=== PATIENT | female | born 1950 | race Caucasian/White ===

== ENCOUNTER 2016-10-01 07:03 | Day surgery (SDC) | payer MEDICARE, MEDICAID ==
[~2016-10-01 07:03] MED LIST: ACETAMINOPHEN500 M4 PO; ACIDOPHILUS1 CAP; ACIDOPHILUS1 EAC3 PO; AFRIN15 M2; AYR SALINE NASA; CALCIUM 600 WI1 EACH; CALTRATE 600 +1 EAC3 PO; CARDURA4 MG; CLONIDINE HCL0.1 M2 PO; COMBIVENT INH14.7 GM; COMBIVENT RESPIM4 G1 INH; CPAP; FLONASE ALLERG9.9 ML; GAVISCON E1 TAB.CHEW; IBUPROFEN800 MG; KEPPRA1000 MG; KEPPRA500 M3 PO; KLOR-CON M2020 MEQ; LOPERAMIDE; MAGNESIUM200 M1 PO; METOPROLOL SUCC25 M1 PO; MULTIVITAMIN1 TAB; MULTIVITAMINS1 EAC6 PO; NASACORT10.8 M1; NORVASC10 MG; NORVASC5 M2 PO; POTASSIUM CHLO20 ME3 PO; PREDNISONE1 M1 PO; PREDNISONE1 MG; PRILOSEC OTC20 M1 PO; PROTONIX40 MG; SALINE NASAL SP30 M1; SEROQUEL25 M2 PO; SEROQUEL25 MG; TOPROL XL100 MG; TOPROL XL25 M1 PO; TOPROL XL50 MG; TYLENOL EXTRA500 MG; VITAMIN D32000 UNI2 PO; WELCHOL625 M1 PO; ZITHROMAX500 M2 PO; ZOCOR10 MG; ZYRTEC1010 PO
[2016-10-01 08:31] LABS: BASO % 0.2 % (0-2); EOS % 2.3 % (0-7); EOSINOPHIL ABSOLUTE COUNT 0.1 tho/cmm (0.0-0.7); HCT-HEMATOCRIT 38.6 % (34.0-49.0); HGB-HEMOGLOBIN 13.5 gm/dl (12.0-15.5); LYMPH % 33.8 % (20-45); LYMPH ABSOLUTE COUNT 1.6 tho/cmm (0.8-4.5); MCV (MEAN CELL VOLUME) 88.7 fl (82.0-96.0); MEAN PLATELET VOLUME 8.6 cmc (9.4-12.4); MONO % 14.2 % (0-12); MONOCYTE ABSOLUTE COUNT 0.7 tho/cmm (0.0-1.2); NEUTROPHIL ABSOLUTE COUNT 2.4 tho/cmm (1.6-8.0); NEUTROPHIL-AUTOMATED 2.4 tho/cmm (1.6-8.0); NEUTROPHILS % 49.5 % (40-80); PLATELET COUNT 229 tho/cmm (150-450); RED BLOOD COUNT 4.35 mil/cmm (4.00-5.20); RED CELL DISTRIBUTION WIDTH 11.2 % (12.4-16.4); WHITE BLOOD COUNT 4.8 tho/cmm (4.0-10.0)
[2016-10-01 08:41] LABS: ANION GAP 12 mmol/L (0-20); BLOOD UREA NITROGEN 6 mg/dl (6-24); CALCIUM 9.2 mg/dl (8.5-10.5); CARBON DIOXIDE-VENOUS 26 mmol/L (22-32); CHLORIDE 98 mmol/l (96-110); CREATININE 0.68 mg/dl (0.50-1.10); GLUCOSE 94 mg/dL (70-110); POTASSIUM 3.4 mmol/L (3.7-5.1); SODIUM 133 mmol/L (135-145); eGFR VALUE FOR BLACK >90 mL/Min
== END 2016-10-01 10:55 ==
LOC: ENDOS 07:03 → SHSA 07:04 → ENDOS 09:22
PROVIDERS: Anesthesiology
PROC: 0DB58ZX Excision of Esophagus, Via Natural or Artificial Opening Endoscopic, Diagnostic (ICD-10-PCS; principal; 2016-10-01)
PROC: 0DB68ZX Excision of Stomach, Via Natural or Artificial Opening Endoscopic, Diagnostic (ICD-10-PCS; 2016-10-01)
PROC: 0DBK8ZZ Excision of Ascending Colon, Via Natural or Artificial Opening Endoscopic (ICD-10-PCS; 2016-10-01)
DX: Z12.11 Encounter for screening for malignant neoplasm of colon (principal); K57.30 Diverticulosis of large intestine without perforation or abscess without bleeding; K64.0 First degree hemorrhoids; K29.50 Unspecified chronic gastritis without bleeding; D12.2 Benign neoplasm of ascending colon; I10 Essential (primary) hypertension; I65.8 Occlusion and stenosis of other precerebral arteries; G40.909 Epilepsy, unspecified, not intractable, without status epilepticus; M19.90 Unspecified osteoarthritis, unspecified site; H54.0 Blindness, both eyes; J45.909 Unspecified asthma, uncomplicated; G47.30 Sleep apnea, unspecified; K21.9 Gastro-esophageal reflux disease without esophagitis; M32.9 Systemic lupus erythematosus, unspecified; R73.03 Prediabetes; Z79.52 Long term (current) use of systemic steroids; Z79.899 Other long term (current) drug therapy; Z88.0 Allergy status to penicillin; Z88.1 Allergy status to other antibiotic agents; Z88.8 Allergy status to other drugs, medicaments and biological substances; Z90.49 Acquired absence of other specified parts of digestive tract; Z90.01 Acquired absence of eye; Z98.890 Other specified postprocedural states; Z99.89 Dependence on other enabling machines and devices